=== PATIENT | male | born 1975 | race Caucasian/White ===

== ENCOUNTER 2021-01-04 19:31 | Emergency (ER) | payer OTHER, SELFPAY ==
--- NOTE | ~2021-01-04 | CT_ITS ---
EXAMINATION: CT abdomen pelvis w con DATE: 01/04/2021 21:38 INDICATION: Right flank pain, right lower quadrant abdominal pain TECHNIQUE: Computed tomography (CT) of the abdomen and pelvis was performed with 100 cc Omnipaque 350 intravenous contrast. Automated exposure control and iterative reconstruction technique were employe d. Exam dose: 308.39 mGy-cm total exam DLP. COMPARISON: None. FINDINGS: The lung bases are clear of infiltrate or consolidation. Minimal atelectasis at the depende nt lower lobes. Normal heart size. No pericardial or pleural effusion. The liver, gallbladder, spleen, pancreas, bile ducts and pancreatic duct, and adrenal glands are unre markable. There are 2 pinpoint nonobstructing upper pole right renal calculi. No ureteral calculus or hydrouret eronephrosis. Normal caliber of the abdominal aorta. No intraperitoneal or retroperitoneal or pelvic mass lesion or adenopathy or ascites. Normal appendix. There is a prominent amount of fecal material throughout the colon no bowel obstruction, bowel wall t hickening, pneumatosis or intraperitoneal free air is evident. IMPRESSION: 2 pinpoint nonobstructing upper pole right renal calculi No ureteral calculus or hydroureteronephrosis is evident Normal appendix Reviewed, dictated and finalized at [facility] Reviewed, dictated and finalized at [facility].
[2021-01-04 19:35] VITALS: BP 139/71; PULSE 80; RESP 16; TEMP 36.9; O2SAT 16
[2021-01-04 19:55] LABS: Basophils Absolute Auto 0.1 K/mm3 (0.0-0.1); Eosinophils Absolute Auto 0.3 K/mm3 (0-0.3); Eosinophils Percent Auto 5.5 % (0-4.4); Hematocrit 37.5 % (42.0-52.0); Hemoglobin 12.5 g/dL (14.0-18.0); Immature Granulocyte Absolute 0.01 K/mm3 (0.00-0.031); Immature Granulocyte Percent A 0.2 % (0-0.5); Lymphocytes Absolute Auto 1.66 K/mm3 (0.9-3.2); Lymphocytes Percent Auto 33.9 % (18.3-44.2); Mean Corpuscular HGB Conc 33.3 g/dl (32-36); Mean Corpuscular Hemoglobin 29.6 pg (26-34); Mean Corpuscular Volume 88.7 fl (80-100); Mean Platelet Volume 8.6 fl (7.4-10.4); Monocytes Absolute Auto 0.4 K/mm3 (0.1-0.6); Monocytes Percent Auto 8.4 % (2.6-8.5); Neutrophils Absolute Auto 2.5 K/mm3 (1.3-6.7); Platelet Count Result 244 k/mm3 (150-375); Red Blood Count 4.23 M/mm3 (4.6-6.20); Red Cell Distribution Width 13.2 % (11.5-14.5); White Blood Count 4.9 K/mm3 (4.5-10.0)
[2021-01-04 20:03] LABS: Anion Gap 8 mmol/L (8-16); Blood Urea Nitrogen 15 mg/dL (9-20); Calcium 9.3 mg/dL (8.4-10.2); Carbon Dioxide 26 mmol/L (22-30); Chloride 107 mmol/L (98-107); Estimated CRCL calculation 87 ml/min; Estimated Glomerular Filt Rate > 60; Glucose 132 mg/dL (75-110); Potassium 3.9 mmol/L (3.4-5.0); Sodium 141 mmol/L (137-145)
--- NOTE | 2021-01-04 20:22 | ED.BACK ---
HPI - Back Pain/Injury General Chief Complaint: Back Pain/Injury Stated Complaint: Back pain Time Seen by Provider: 01/04/21 20:10 History of Present Illness HPI Narrative: Patient is a 45-year-old male who presents ER with right-sided flank pain. Sudden onset little over an hour ago. Was bending over screwing a hose into a faucet. No heavy lifting. No numbness or tingling lower extremities. Pain radiates into the right lower quadrant. Associate with sweats and vomiting. No testicular tenderness. No urinary frequency urgency. No previous history of kidney stones. Related Data Allergies Allergy/AdvReac Type Severity Reaction Status Date / Time No Known Allergies Allergy Unverified 01/04/21 19:32 Review of Systems Review of Systems: All systems reviewed & are unremarkable except as noted in HPI and below Constitutional: Constitutional: Denies chills and Denies fever(s) Gastrointestinal: Gastrointestinal: Reports abdominal pain, Reports nausea and Reports vomiting Musculoskeletal: Musculoskeletal: Reports back pain, Denies arthralgias and Denies joint swelling PMFSH Past Medical History Medical History (Updated 01/04/21 @ 22:16 by Lionel Bennett MD) Healthy adult male Surgical History Surgical History (Updated 01/04/21 @ 20:27 by Lionel Bennett MD) H/O inguinal hernia repair Social History Social History (Updated 01/04/21 @ 20:27 by Lionel Bennett MD) Smoking status: Never smoker Exam Narrative: Exam Narrative: GENERAL: Well-appearing, well-nourished, and in no acute distress. HEAD: Normocephalic, atraumatic. CHEST: Clear to auscultation. No respiratory distress. HEART: Regular rate and rhythm. Normal peripheral pulses. ABDOMEN: Soft, tender palpation in the right lower quadrant without guarding, nondistended. Back: No midline tenderness of the thoracic or lumbar spine. There is paraspinal muscular tenderness on the right side along the mid scapular line at the level of L2. EXTREMITIES: Normal range of motion. No edema. SKIN: Warm, dry, no rash. NEURO: Alert and oriented x3. PSYCH: Normal mood and affect. Course Course Emergency Course: Patient resting comfortably. Informed results. Patient has a recently passed kidney stone in his urine cup. Discharge home. Vital Signs Vital signs: Vital Signs Temperature 98.5 F 01/04/21 19:35 Pulse Rate 80 01/04/21 19:35 Respiratory Rate 16 01/04/21 19:35 Blood Pressure 139/71 01/04/21 19:35 Pulse Oximetry 16 L 01/04/21 19:35 Temperature 98.5 F 01/04/21 19:35 Pulse Rate 80 01/04/21 19:35 Respiratory Rate 16 01/04/21 19:35 Blood Pressure 139/71 01/04/21 19:35 Pulse Oximetry 16 L 01/04/21 19:35 MDM - Back Pain/Injury Differential Diagnosis Differential diagnosis: Likely other (Muscle strain/spasm versus kidney stone versus appendicitis.) Lab Data Result diagrams: 01/04/21 19:40 01/04/21 19:40 Labs: Lab Results 01/04/21 01/04/21 01/04/21 Range/Units 19:40 19:40 21:11 WBC 4.9 (4.5-10.0) K/mm3 RBC 4.23 L (4.6-6.20) M/mm3 Hgb 12.5 L (14.0-18.0) g/dL Hct 37.5 L (42.0-52.0) % MCV 88.7 (80-100) fl MCH 29.6 (26-34) pg MCHC 33.3 (32-36) g/dl RDW 13.2 (11.5-14.5) % Plt Count 244 (150-375) k/mm3 MPV 8.6 (7.4-10.4) fl Immature Gran % (Auto) 0.2 (0-0.5) % Neut % (Auto) 51.0 (45.5-73.1) % Lymph % (Auto) 33.9 (18.3-44.2) % Arroyo % (Auto) 8.4 (2.6-8.5) % Eos % (Auto) 5.5 H (0-4.4) % Baso % (Auto) 1.0 (0.2-1.2) % Lymph # (Auto) 1.66 (0.9-3.2) K/mm3 Arroyo # (Auto) 0.4 (0.1-0.6) K/mm3 Eos # (Auto) 0.3 (0-0.3) K/mm3 Baso # (Auto) 0.1 (0.0-0.1) K/mm3 Abs Immat Gran (auto) 0.01 (0.00-0.031) K/mm3 Absolute Neuts (auto) 2.5 (1.3-6.7) K/mm3 Absolute Nucleated RBC 0.0 (0.0-0.012) K/mm3 Nucleated RBC % 0.0 (0.0-0.2) % Sodium 141 (137-145) mmol/L Potassium 3.9 (3.4
[2021-01-04] MEDS: KETOROLAC 30 MG/ML VIAL (*BKC) IV PUSH (20:32)
[2021-01-04 21:20] LABS: Add Urine Microscopic? YES; Appearance Urine Clear (Clear); Bacteria Urine Trace /hpf; Bilirubin Urine Negative (Negative); Blood Urine 1+ (Negative); Color Urine Yellow (Yellow); Glucose Urine UA Negative (Negative); Ketones Urine Negative (Negative); Leukocyte Esterase Ur Trace LEU/UL (Negative); Mucus Urine Rare /lpf; Nitrate Urine Negative (Negative); Protein Urine 1+ mg/dL (Negative); Specific Grav Ur 1.019 (1.001-1.035); WBC Urine 0-3 /hpf
[2021-01-04 22:54] VITALS: BP 130/62; PULSE 74; RESP 18; O2SAT 98
== END 2021-01-04 22:56 | disposition home or self-care (01) ==
PROVIDERS: Emergency Medicine; Emergency Provider Emergency Medicine; PCP Family Medicine
DX: N20.0 Calculus of kidney (principal)
CPT/HCPCS: 36415; 74177; 80048; 81001; 85025; 96374; 99284; J1885; Q9967

== ENCOUNTER 2025-03-04 08:17 | Outpatient (CLI) | payer OTHER, SELFPAY ==
--- OUTSIDE RECORDS SUMMARY | 2025-03-04 08:20 | XMS_ITS | Clinical Summary ---
Author Organization [facility] Address [address] [address] Care Team Providers Care Nuclear Medicine Supervisor Name Role Phone Unavailable Primary Care Provider Unavailabl e Source Comments [facility],non-owned Affiliates and Associated Physician Practices is amultiple site organization consisting of ambulatory clinics and hospital sitesin [place], [place], [place] and [place]. This disclosure is being madepursuant to the Care Everywhere program and may not contain all information available regarding this patient. 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 Gender Identity Not on file Sexual Orientation Not on file Plan of Treatment Health Maintenance Due Date Last Done Comments COLOGUARD (AGES 45-75) - COL ON CA SCREENING 1975 COLON MONITORING 1975 COLONOSCOPY - COLON CA SCREENING 1975 CT COLONOGRAPHY - COLON CA SCREENING 1975 Colorectal Cancer Screening 1975 FIT - COLON CA SCREENING 1975 FLEX SIG - COLON CA SCREENING 1975 LIPID TESTING 1975 HIV SCREENING 1990 HEPATITIS C SCREENING 05/28/1993 DTAP/TDAP/TD VACCINES (1 - Tdap) 1994 HEPATITIS B VACCINE (1 of 3 - 19+ 3-dose series) 1994 COVID-19 VACCINE (1 - 2023-2 5 season) 2024 DEPRESSION SCREENING 07/20/2024 INFLUENZA VACCINE (#1) 2025 ZOSTER VACCINE (1 of 2) 2025 HIB VACCINE Aged Out No longer eligi ble based on patient's age to complete this topic HPV VACCINE Aged Out No longer eligi ble based on patient's age to complete this topic MENINGOCOCCAL (Group B) VACC INE SHARED DECISION-MAKING Aged Out No longer eligibl e based on patient's age to complete this topic MENINGOCOCCAL GROUPS A/C/Y/W VACCINE Aged Out No longer eligible b ased on patient's age to complete this topic
[2025-03-04 08:51] LABS: Alanine Aminotransferase 20 U/L (6-50); Albumin Level 4.4 g/dL (3.5-5.1); Alkaline Phosphatase 56 U/L (38-126); Anion Gap 6 mmol/L (4-12); Aspartate Amino Transferase 24 U/L (17-59); Bilirubin,Total 0.8 mg/dL (0.2-1.3); Blood Urea Nitrogen 15 mg/dL (9-20); Calcium 9.6 mg/dL (8.4-10.2); Carbon Dioxide 27 mmol/L (22-30); Chloride 107 mmol/L (98-107); Cholesterol 226 mg/dL (0-200); Estimated Glomerular Filt Rate > 60; Glucose 106 mg/dL (65-110); HDL Direct 49 mg/dL; Osmolality Calculated 290 mOsm/kg (285-295); Potassium 4.0 mmol/L (3.4-5.0); Sodium 140 mmol/L (137-145); Total Protein 6.9 g/dL (6.3-8.2); Triglycerides 98 mg/dL (<150)
[2025-03-04 09:21] LABS: Prostate Specific Antigen 1.8 ng/mL (< OR = 4.0)
== END 2025-03-04 08:18 | disposition home or self-care (01) ==
LOC: CHSLAB 08:18
PROVIDERS: PCP Family Medicine; Visit Provider Family Medicine
DX: Z00.00 Encounter for general adult medical examination without abnormal findings (principal); Z12.5 Encounter for screening for malignant neoplasm of prostate
CPT/HCPCS: 36415; 80053; 80061; 84153; G0103

== ENCOUNTER 2025-03-07 00:59 | Day surgery (SDC) | payer OTHER, SELFPAY ==
[2025-02-27 08:26] VITALS: BMI 23.6
--- OUTSIDE RECORDS SUMMARY | 2025-03-07 01:01 | XMS_ITS | Clinical Summary ---
Author Organization [facility] Address [address] [place] [address] Care Team Providers Care Chart Calculator Name Role Phone Unavailable Primary Care Provider Unavailabl e Source Comments [facility],non-owned Affiliates and Associated Physician Practices is amultiple site organization consisting of ambulatory clinics and hospital sitesin [place], [place], [place] and [place]. This disclosure is being madepursuant to the Care Everywhere program and may not contain all information available regarding this patient. 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
[2025-03-07 09:06] VITALS: BP 116/78; PULSE 89; RESP 18; TEMP 36.6; O2SAT 99
[2025-03-07] MEDS: LACTATED RINGERS 1,000 ML 150 ML IV CONT (09:19)
--- NOTE | 2025-03-07 09:23 | WPDANESEPPF ---
Anes - Initial Pre Proc Eval Procedure: Operation Date: 03/07/25 10:30 Proposed Procedures p Screening Colonoscopy - Kush Chan DO Date/Time: 03/07/25 09:23 Surgeon: Kush Chan DO Pre Op Diagnosis: Neoplasm screening Patient Data Age: 49 Gender: M Height: 1.78 m Weight: 74.6 kg Last Vital Signs Temp 36.6 C 03/07/25 09:06 Pulse 89 03/07/25 09:06 Resp 18 03/07/25 09:06 BP 116/78 03/07/25 09:06 Pulse Ox 99 03/07/25 09:06 O2 Del Method Room Air 03/07/25 09:06 Allergies Allergy/AdvReac Type Severity Reaction Status Date / Time No Known Allergies Allergy Verified 02/27/25 08:25 Home Medications ?Medication ?Instructions ?Recorded ?Confirmed ?Type albuterol sulfate 90 mcg/actuation 1 puff inhalation Q4H PRN 01/06/25 02/27/25 Rx aerosol inhaler (Ventolin HFA) bronchospasm #8.5 grams omega-3 acid ethyl esters 1 gram 1 cap PO DAILY 01/06/25 03/07/25 History capsule propranolol 10 mg tablet 10 mg PO Q12H #180 tabs 01/06/25 03/07/25 Rx sumatriptan succinate 100 mg 100 mg PO ONCE #20 tabs 01/06/25 02/27/25 Rx tablet (Imitrex) Patient hx anesthesia problems: none Family hx anesthesia problems: none Results Review: All pre-operative results and documents have been reviewed as part of the pre-operative evaluation. [facility] Past Medical History Medical History (Updated 03/06/25 @ 11:50 by José Miguel Balderrama DO) Asthma Kidney stone Healthy adult male [place] Surgical History Surgical History (System 01/09/25 @ 13:29 by Mariaelena Khan) H/O inguinal hernia repair Family History Family History (System 01/09/25 @ 13:29 by Mariaelena Khan) Father Cancer Heart disease Mother Diabetes mellitus Hypertension Cerebrovascular accident Thyroid disorder Sibling Asthma Grandparent Diabetes mellitus Hypertension Grandparent Alcoholism Social History Social History (System 01/09/25 @ 13:29 by Mariaelena Khan) Smoking status: Never smoker Alcohol intake: current Drinks per week: 1 Substance use: never Substance use type: does not use Living arrangements: with family Gender identity (if verbalized by the patient): Male Spiritual care concerns: No Anes - Eval Final PreProcedure Day of Procedure 03/07/25 09:23 Patient weight: normal Heart: regular rate and rhythm Lungs: clear to auscultation and normal air movement Airway: Mallampati scale class II Neurological: alert and oriented Last oral intake: >/= 8 hours ASA classification: II Emergent: no Anesthetic plan: proceed Anesthesia type and monitoring: general GIVS and standard monitoring Results Review: All pre-operative results and documents have been reviewed as part of the pre-operative evaluation. Informed Consent: The patient's anesthetic plan and its attendant risks and benefits were discussed with the patient/family/POA. Questions were solicited and answers provided to the satisfaction of the patient/family/POA.
--- NOTE | 2025-03-07 09:55 | PM.IMHP ---
H&P: HPI History of Present Illness Date/Time: 03/07/25 09:55 Chief Complaint: screening for colorectal cancer Narrative: this is a 49-year-old man who presents for his 1st colonoscopy. He denies hematochezia or melena. He denies family history of colon cancer. Review of Systems Review of Systems: All systems reviewed & are unremarkable except as noted in HPI and below Constitutional: Constitutional: Denies chills, Denies fever(s), Denies headache(s) and Denies weight loss Eyes: Eyes: Denies change in vision ENT: Denies dizziness, Denies headache(s), Denies neck mass and Denies throat swelling Cardiovascular: Cardiovascular: Denies chest pain, Denies lightheadedness and Denies dyspnea Respiratory: Respiratory: Denies cough, Denies dyspnea and Denies wheezing Gastrointestinal: Gastrointestinal: Denies abdominal pain, Denies change in bowel habits, Denies nausea and Denies vomiting Genitourinary: Genitourinary: Denies hematuria and Denies dysuria Musculoskeletal: Musculoskeletal: Reports as per HPI Integumentary/Breasts: Skin/Breast: Reports as per HPI Neurologic: Denies dizziness and Denies headache(s) Allergic/Immunologic: Allergic/Immunologic: Denies throat swelling and Denies wheezing PMF Past Medical History Medical History (Updated 03/07/25 @ 09:56 by Kush Chan DO) Asthma Kidney stone Healthy adult male [place] Surgical History Surgical History (System 01/09/25 @ 13:29 by Mariaelena Khan) H/O inguinal hernia repair Family History Family History (System 01/09/25 @ 13:29 by Mariaelena Khan) Father Cancer Heart disease Mother Diabetes mellitus Hypertension Cerebrovascular accident Thyroid disorder Sibling Asthma Grandparent Diabetes mellitus Hypertension Grandparent Alcoholism Social History Social History (System 01/09/25 @ 13:29 by Mariaelena Khan) Smoking status: Never smoker Alcohol intake: current Drinks per week: 1 Substance use: never Substance use type: does not use Living arrangements: with family Gender identity (if verbalized by the patient): Male Spiritual care concerns: No Meds Home Medications and Allergies Home Medications ?Medication ?Instructions ?Recorded ?Confirmed ?Type albuterol sulfate 90 mcg/actuation 1 puff inhalation Q4H PRN 01/06/25 02/27/25 Rx aerosol inhaler (Ventolin HFA) bronchospasm #8.5 grams omega-3 acid ethyl esters 1 gram 1 cap PO DAILY 01/06/25 03/07/25 History capsule propranolol 10 mg tablet 10 mg PO Q12H #180 tabs 01/06/25 03/07/25 Rx sumatriptan succinate 100 mg 100 mg PO ONCE #20 tabs 01/06/25 02/27/25 Rx tablet (Imitrex) Allergies Allergy/AdvReac Type Severity Reaction Status Date / Time No Known Allergies Allergy Verified 02/27/25 08:25 Vital Signs Vital Signs - 24 hr 03/07/25 09:06 Temperature 97.9 F Pulse Rate 89 Respiratory Rate 18 Blood Pressure 116/78 Pulse Oximetry 99 Oxygen Delivery Room Air Exam Const: General: no acute distress and alert Orientation/consciousness: patient oriented x3 HENMT: Head: normocephalic and atraumatic Ears: hearing grossly normal bilaterally Face/Nose/Sinus: Normal nares present Mouth: Yes Normal oral and palatal mucosa present Eyes: Periorbital: periorbital findings normal Sclera: sclerae normal EOM: EOMs intact bilaterally Neck: Neck: normal visual inspection, no lymphadenopathy and trachea midline Chest: Chest palpation & inspection: normal inspection of the chest Resp: Effort & Inspection: normal respiratory effort Auscultation: clear to auscultation bilaterally Cardio: Jugular venous distension: no JVD Rate: regular rate Rhythm: regular rhythm Heart sounds: S1 normal heart sound present and S2 normal heart sound present Peripheral pulses: Peripheral pulses 2+ throughout GI: Inspection: normal to inspection GI Palp: Yes Soft to palpation, No Tenderness to palpation present (GI), No Guarding due to palpation present (GI) and No Rebound tenderness present Percussion: Yes normal to percussion Auscultation: normal bowel sounds : General: Yes no CVA tenderness Back/Spine/Pelvis: Back: no CVA tenderness Neuro: General: patient oriented x3, no focal motor deficits and CN's II-XI intact bilaterally Cognition (Neuro): normal cognition Speech: normal speech Motor exam (neuro): 5/5 motor strength present throughout Extrem: General: capillary refill normal and no clubbing, cyanosis or edema Assessment and Plan Assessment and plan (1) Screening for colorectal cancer: Code(s): Z12.11 - Encounter for screening for malignant neoplasm of colon; Z12.12 - Encounter for screening for malignant neoplasm of rectum Status: Acute Assessment and Plan: I have recommended colonoscopy. I have discussed the procedure, risks, benefits, and alternatives. Questions were answered. Patient is agreeable to proceed.
[2025-03-07 10:17] VITALS: BP 101/68; PULSE 89; RESP 18; O2SAT 98
[2025-03-07 10:27] VITALS: BP 105/73; PULSE 74; RESP 17; O2SAT 99
[2025-03-07 10:37] VITALS: BP 106/75; PULSE 72; RESP 12; O2SAT 99
== END 2025-03-07 10:44 | disposition home or self-care (01) ==
PROVIDERS: PCP Family Medicine; Visit Provider Surgery
PROC: 0DJD8ZZ Inspection of Lower Intestinal Tract, Via Natural or Artificial Opening Endoscopic (ICD-10-PCS; CPT 45378; principal; 2025-03-07 10:30)
DX: Z12.11 Encounter for screening for malignant neoplasm of colon (principal); K57.30 Diverticulosis of large intestine without perforation or abscess without bleeding; J45.909 Unspecified asthma, uncomplicated; Z79.51 Long term (current) use of inhaled steroids; Z98.890 Other specified postprocedural states; Z87.442 Personal history of urinary calculi; Z80.9 Family history of malignant neoplasm, unspecified; Z82.49 Family history of ischemic heart disease and other diseases of the circulatory system
CPT/HCPCS: 45378; J2003; J2704; J7120